=== PATIENT | female | born 1940 | race Caucasian/White ===

== ENCOUNTER 2018-11-13 07:26 | Outpatient (CLI) | payer MEDICARE, OTHER ==
--- NOTE | 2018-11-13 10:53 | MRI ---
MRI LUMBAR SPINE WITHOUT CONTRAST: Date: 11/13/18 COMPARISON: None. CORRELATION: CT lumbar spine dated 11/12/18. HISTORY: T12 compression fracture. Pain. Difficulty walking. Unable to bear weight. Loss of bladder and bowel control. FINDINGS: There is T1 marrow signal hypointensity with associated T2 and STIR hyperintensity involving the T12 vertebral body compatible with a known compression fracture. When comparing the previous CT with this exam, there is continued loss of vertebral body height with evidence of retropulsion. There are bila teral transpedicular screws at L4 and L5, along with a disc prosthesis. There is associated metallic susceptibility artifact. There is anterolisthesis of L4 upon L5 (7 mm). Visualized kidneys demonstrate bilateral cortical and parapelvic cysts. There is atrophy of the right psoas muscle. Conus medullaris terminates at the inferior aspect of L1. T11-T12: No significant central canal stenosis. Moderate right and left foraminal narrowing. There appears to be intrinsic hemangioma at T11. T12 vertebral body: Moderate central canal stenosis secondary to retropulsion. T12-L1: Mild central canal stenosis predominantly due to retropulsion. Moderate bilateral foraminal narrowing. L1-L2: Desiccation with mild loss of disc space height. No high grade central canal stenosis. Mild r ight and moderate left foraminal narrowing. L2-L3: Desiccation with mild loss of disc space height. Broad based disc bulge, ligamentum flavum th ickening, and facet hypertrophy result in mild central canal stenosis. Moderate bilateral foraminal n arrowing. L3-L4: Limited evaluation due to metallic susceptibility artifact. There is at least moderate centra l canal stenosis. Moderate to severe right and severe left foraminal narrowing. L4-L5: Limited evaluation due to metallic susceptibility artifact. Disc prosthesis is noted. There d oes not appear to be high grade central canal stenosis. Moderate bilateral foraminal narrowing. The n erve roots in the thecal sac are peripherally displaced. Correlate for probable arachnoiditis. L5-S1: Desiccation with mild loss of disc space height. There is ligamentum flavum thickening and fa cet hypertrophy. No significant stenosis of the thecal sac. Moderate bilateral foraminal narrowing. T he nerve roots are laterally displaced and there is a partially empty thecal sac. 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 IMPRESSION: 1. Lumbar fusion at L4-L5 as above. Grade I anterolisthesis of L4 upon L5. Multilevel foraminal narr owing as detailed above. 2. Progression of compression fracture and loss of vertebral body height at T12 with associated retr opulsion and moderate central canal stenosis. 3. 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 CODE T. POS: [facility]
== END 2018-11-13 07:27 | disposition home or self-care (01) ==
LOC: BICMRI 07:26
PROVIDERS: ATTEND Neurological Surgery
DX: M84.48XA Pathological fracture, other site, initial encounter for fracture (principal); M43.16 Spondylolisthesis, lumbar region; M48.061 Spinal stenosis, lumbar region without neurogenic claudication; M48.07 Spinal stenosis, lumbosacral region; Z98.1 Arthrodesis status
CPT/HCPCS: 72148

== ENCOUNTER 2018-11-15 07:42 | Inpatient (IN) | payer MEDICARE, OTHER ==
[2018-11-14 14:20] VITALS: BMI 35.4
[2018-11-15 08:35] LABS: #Basophils 0.1 thou/uL (0.0-0.2); #Eosinphils 0.1 thou/uL (0.0-0.7); #Lymphocytes 1.6 thou/uL (1.20-3.40); #Monocytes 1.2 thou/uL (0.11-0.59); #Neutrophils 11.2 thou/uL (1.40-6.50); %Basophils 0.5 % (0.0-1.0); %Eosinophils 0.8 % (0.0-10.0); %Lymphocytes 11.6 % (21.0-51.0); %Monocytes 8.6 % (0.0-10.0); %Neutrophils 78.6 % (42.0-75.0); Hemoglobin 14.3 g/dL (12.0-16.0); Mean Corpuscular HGB CONC 31.4 g/dL (32.0-36.0); Mean Corpuscular Volume 89.1 fL (78.0-98.0); Mean Platelet Volume 7.5 fL (7.4-10.4); Platelet Count 376 thou/uL (130-400); RBC Distribution Width 18.7 % (11.5-14.5); Red Blood Cell (RBC) Count 5.11 mill/uL (4.20-5.40); White Blood Cell (WBC) Count 14.2 thou/uL (4.8-10.8)
[2018-11-15 08:57] LABS: Anion Gap 16 mmol/L (10-20); BUN (Urea Nitrogen) 13 mg/dL (9.8-20.1); Calc. Creatinine Clearance 96 mL/min (70-130); Calcium 9.7 mg/dL (7.8-10.44); Carbon Dioxide 21 mmol/L (23-31); Chloride 102 mmol/L (98-107); Estimated GFR-MDRD 85; Glucose 135 mg/dL (83-110); Potassium 4.3 mmol/L (3.5-5.1); Sodium 135 mmol/L (136-145)
[2018-11-15] MEDS ORDERED: Sodium Chloride 0.9% 10 ML ONE (10:45)
[2018-11-15] MEDS ORDERED: Fentanyl 250 MCG/5 ML VIAL ONE (10:53)
--- NOTE | 2018-11-15 12:50 | OP ---
DATE OF PROCEDURE: 11/15/2018 [employer]ACKER DOUGH MIXER: Chantale Cook PA-C. PROCEDURE PERFORMED: T12 laminectomy, superior L1 laminectomy, posterolateral arthrodesis T10-L1, pedicle screw instrumentation T10-L1, local morselized autograft, BMP. DESCRIPTION OF PROCEDURE: The patient was brought to the operating room and intubated. She was rolled in a prone position on gel-filled chest rolls. An incision was made exposing T10 through L1 and the level was confirmed by x-ray. We performed complete T12 and modest superior L1 laminectomy completely decompressing the spinal canal. We next placed the pedicle screws at T10, T11, and L1 bilaterally. The pedicles and bones were exceptionally soft. The screws were then connected by jese secured by nuts, which were final tightened. The wound was then extensively irrigated with bacitracin irrigation and MAC hemostasis was secured. Combination of local morselized autograft and BMP soaked on the Gelfoam pledget and were laid over the posterolateral surfaces for the purpose of arthrodesis from T10-L1. Vancomycin powder was applied and the wound was closed in anatomic layers over drain. Job ID: [id number]
[2018-11-15] MEDS ORDERED: Promethazine HCl 25 MG/ML VIAL SLOW IVP PRN (13:01)
[2018-11-15] MEDS ORDERED: Promethazine HCl 25 MG/ML VIAL IM PRN ×2 (13:01→13:33)
[2018-11-15] MEDS ORDERED: Ondansetron HCl/PF 4 MG/2 ML Vial IVP PRN (13:01)
[2018-11-15] MEDS ORDERED: Fentanyl 100 MCG/2 ML VIAL ONE ×2 (13:25→13:53)
[2018-11-15] MEDS ORDERED: diphenhydrAMINE 25 MG CAP PO PRN (13:33)
[2018-11-15] MEDS ORDERED: Milk Of Magnesia 30 ML UDCUP PO PRN (13:33)
[2018-11-15] MEDS ORDERED: Promethazine HCl 12.5 MG SUPP PR PRN (13:33)
[2018-11-15] MEDS ORDERED: Promethazine 25 MG TAB PO PRN (13:33)
[2018-11-15] MEDS ORDERED: traMADol HCl 50 MG TAB PO PRN ×2 (13:33)
[2018-11-15] MEDS ORDERED: Mag-Al 1200 mg/1200 mg/30 ML UDCUP PO PRN (13:33)
[2018-11-15] MEDS ORDERED: Morphine 4 MG/ML VIAL SLOW IVP PRN ×2 (13:33→13:34)
[2018-11-15] MEDS ORDERED: diphenhydrAMINE 50 MG/ML VIAL IVP PRN (13:33)
[2018-11-15] MEDS ORDERED: Ondansetron PF 4 MG/2 ML Vial IVP PRN (13:35)
[2018-11-15] MEDS ORDERED: PHENYLEPHRINE-NS 100 MCG/ML 10 ML SYRINGE ONE (14:19)
[2018-11-15] MEDS ORDERED: Ondansetron PF 4 MG/2 ML Vial ONE (14:19)
[2018-11-15] MEDS ORDERED: ePHEDrine 50 MG/ML VIAL ONE (14:19)
[2018-11-15] MEDS ORDERED: Rocuronium Bromide 10 MG/ML (10ML VIAL) ONE (14:19)
[2018-11-15] MEDS ORDERED: PROPOFOL 200 MG/20 ML VIAL ONE (14:19)
[2018-11-15] MEDS ORDERED: Lidocaine 1% PF 5 ML VIAL ONE (14:19)
[2018-11-15] MEDS ORDERED: Glycopyrrolate 0.2 MG/ML 5 ML SYRINGE ONE (14:19)
--- NOTE | 2018-11-15 17:05 | EKG ---
Test Reason : PREOP Blood Pressure : / mmHG Vent. Rate : 102 BPM Atrial Rate : 102 BPM P-R Int : 184 ms QRS Dur : 096 ms QT Int : 344 ms P-R-T Axes : 057 -41 053 degrees QTc Int : 448 ms Sinus tachycardia Left axis deviation Minimal voltage criteria for LVH, may be normal variant Anterior infarct , age undetermined /Poor R wave progression. Abnormal ECG No previous ECGs available Confirmed by CARLOS LEHMAN ([id number]) on 11/15/2018 5:04:35 PM Referred By: MALINI Confirmed By:CARLOS LEHMAN
[2018-11-15] MEDS: HYDROcodone/Acetaminophen 10/325 mg Tablet PO PRN ×2 (18:13→22:31)
[2018-11-15] MEDS: CEFAZOLIN 2 GM in Premix Bag 1 BAG IVPB SCH (18:13)
[2018-11-15] MEDS: Atorvastatin Calcium 20 MG TAB PO SCH (21:30)
[2018-11-15] MEDS: Sodium Chloride 0.9% 1,000 ML IV SCH (21:30)
--- NOTE | 2018-11-16 01:09 | CON ---
DATE OF CONSULTATION: PRIMARY CARE PHYSICIAN: Dr. Adriel Lenz. CHIEF COMPLAINT: The patient admitted for lumbar fusion. Consulted for medical management HISTORY OF PRESENT ILLNESS: Ms. Ann is an 78-year-old female with past medical history of hypothyroidism, DVTs, hyperlipidemia, and acid reflux, who presents as an elective surgery for her lumbar fusion. The patient was having falls. The patient was seen by neurosurgeon who performed the laminectomy at T12 and L1. The patient reports that her pain is well controlled. The patient reports she is compliant with her medication at this point. She denies any other issues. PAST SURGERY HISTORY: As mentioned in the HPI. PAST SURGICAL HISTORY: 1. Bilateral knee replacement. 2. Laminectomy. 3. Foot hardware placement. FAMILY HISTORY: Mother cancer. Father heart failure. ALLERGIES: THE PATIENT IS ALLERGIC TO CELECOXIB, NITROFURANTOIN, RISEDRONATE AND SULFA DRUGS. SOCIAL HISTORY: The patient denies smoking, illicit drugs, or any alcohol use. MEDICATIONS: Home medications include: 1. Levothyroxine. 2. Aspirin. 3. Atorvastatin. 4. Calcium. 5. Levothyroxine. 6. Omeprazole. PHYSICAL EXAMINATION: VITAL SIGNS: Blood pressure 117/70, pulse 101, temp 97.7, respiration rate 18, O2 saturation 95% on 2 L nasal cannula. HEENT: Head, atraumatic. NECK: No lymphadenopathy noted. EYES: Extraocular movement intact. Mouth, no exudate. Nose and ears no drainage noted. CARDIOVASCULAR: Regular rate and rhythm. The patient noted to have systolic murmur. RESPIRATORY: Clear bilaterally. GI: Soft. Bowel sounds positive. Nontender. EXTREMITIES: No edema noted. The patient noted to have a drain from a surgical site. SKIN: no rashes noted LABORATORY DATA: Sodium 135, potassium 4.3, chloride 102, bicarb 21, BUN 13, creatinine 0.67, glucose 137, white blood cell count 14.2, hemoglobin 14.5, hematocrit 45.3, platelets 376. The patient EKG reviewed and negative for ST-segment elevation per the report. ASSESSMENT: 1. Lumbar fusion and fall, status post laminectomy. 2. Leukocytosis. 3. Hypothyroidism. 4. Osteoporosis. 5. Gastroesophageal reflux disease. PLAN: 1. The patient is status post laminectomy, pain well controlled. 2. Continue pain management per Neurosurgery. 3. Leukocytosis, likely due to surgery. 4. The patient does not seem to be infectious at this point. 5. Continue to monitor clinically at this point. 6. Hypothyroidism. Continue home levothyroxine. 7. GERD, continue PPI. 8. History of DVT. Patient only on aspirin. Restart aspirin per Neurosurgery. 9. DVT prophylaxis, SCDs. 10. The patient's medical power of civil attorney would be son. Job ID: [id number] MTDD
[2018-11-16] MEDS: CEFAZOLIN 2 GM in Premix Bag 1 BAG IVPB SCH ×3 (01:36→16:59)
[2018-11-16] MEDS: HYDROcodone/Acetaminophen 10/325 mg Tablet PO PRN ×3 (06:58→21:22)
[2018-11-16] MEDS: Levothyroxine Sodium 75 MCG TAB PO SCH (06:58)
[2018-11-16] MEDS: Stress 600 With Zinc 1 TAB PO SCH (08:09)
[2018-11-16] MEDS: Calcium Carbonate + Vit D 1 TAB PO SCH (08:09)
[2018-11-16] MEDS: Cyanocobalamin (Vitamin B-12) 1,000 MCG TAB PO SCH (08:09)
[2018-11-16] MEDS: Lactinex Tablet PO SCH (08:09)
[2018-11-16] MEDS ORDERED: BIOTIN 5000 MCG PO SCH (09:00)
[2018-11-16] MEDS: Sodium Chloride 0.9% 1,000 ML IV SCH ×2 (09:30→22:18)
--- NOTE | 2018-11-16 12:55 | PRG ---
DATE OF SERVICE: 11/16/2018 SUBJECTIVE: Ms. Ann is doing quite well, considering the extent of her surgery. She has yet to get up with physical therapy, but will be doing so shortly. Her pain control is quite adequate. We will continue gradual mobilization and pain control through the weekend, and hopefully, by early next week, we can make a plan for rehab versus snf. Job ID: [id number]
[2018-11-16] MEDS ORDERED: Milk Of Magnesia 30 ML UDCUP PO PRN (15:09)
[2018-11-16] MEDS ORDERED: Eucerin (Mineral Oil/Petrolatum,White) 30 gm Jar TOP PRN (15:09)
--- NOTE | 2018-11-16 15:36 | PRG ---
DATE OF SERVICE: 11/16/2018 SUBJECTIVE: The patient denies any new complaints at this time. No fevers, chills, shortness of breath, or chest pain reported. OBJECTIVE: VITAL SIGNS: Temperature 97.7, pulse of 93, respirations of 18, blood pressure 111/58, O2 saturation 94% on room air. GENERAL: An 78-year-old female, in no apparent distress. LUNGS: Clear to auscultation bilaterally. HEART: S1, S2 present. Regular rate and rhythm. ABDOMEN: Soft, nontender. Bowel sounds present. EXTREMITIES: No edema or calf tenderness. LABORATORY FINDINGS: Sodium 135, potassium 4.3, chloride 102, bicarb 21, BUN 13, and creatinine 0.67. CURRENT MEDICATIONS: Reviewed. IMPRESSION: 1. Status post lumbar laminectomy. Management per primary service. 2. Leukocytosis, unlikely to be infectious. 3. Hypothyroidism. 4. Gastroesophageal reflux disease. 5. Osteoporosis. 6. Obesity with a BMI of 35.4. 7. Chronic kidney disease stage 2. 8. Hyperlipidemia. PLAN: We will change timing of Protonix to 06:00 a.m. daily per the patient's request. We will continue levothyroxine and statins. Continue physical therapy, occupational therapy. Pain control. We will discontinue IV fluids when tolerating p.o. Plan was discussed with the patient. She stated understanding. Job ID: [id number]
[2018-11-16] MEDS: Atorvastatin Calcium 20 MG TAB PO SCH (21:21)
[2018-11-16] MEDS: Senokot S 8.6-50 MG TAB PO SCH (21:21)
[2018-11-16] MEDS: Nystatin Powder 15 GM BOT TOP SCH (21:22)
[2018-11-17] MEDS: CEFAZOLIN 2 GM in Premix Bag 1 BAG IVPB SCH ×2 (01:55→08:40)
[2018-11-17] MEDS: HYDROcodone/Acetaminophen 10/325 mg Tablet PO PRN ×2 (06:41→10:26)
[2018-11-17] MEDS: Levothyroxine Sodium 75 MCG TAB PO SCH (06:42)
[2018-11-17] MEDS: Polyethylene Glycol 3350 17 GM Packet PO SCH (08:41)
[2018-11-17] MEDS: Stress 600 With Zinc 1 TAB PO SCH (08:41)
[2018-11-17] MEDS: Lactinex Tablet PO SCH (08:41)
[2018-11-17] MEDS: Cyanocobalamin (Vitamin B-12) 1,000 MCG TAB PO SCH (08:41)
[2018-11-17] MEDS: Nystatin Powder 15 GM BOT TOP SCH ×2 (08:41→21:59)
[2018-11-17] MEDS: Calcium Carbonate + Vit D 1 TAB PO SCH (08:42)
[2018-11-17] MEDS: Senokot S 8.6-50 MG TAB PO SCH ×2 (08:42→21:59)
[2018-11-17] MEDS: Cephalexin 250 MG CAP PO SCH ×3 (13:21→21:59)
[2018-11-17] MEDS: Sodium Chloride 0.9% 1,000 ML IV SCH (13:21)
[2018-11-17] MEDS: Atorvastatin Calcium 20 MG TAB PO SCH (21:59)
[2018-11-17] MEDS: tiZANidine HCl 4 MG TAB PO PRN (22:05)
[2018-11-18] MEDS: Sodium Chloride 0.9% 1,000 ML IV SCH ×2 (02:03→14:43)
[2018-11-18] MEDS: HYDROcodone/Acetaminophen 10/325 mg Tablet PO PRN (06:41)
[2018-11-18] MEDS: Levothyroxine Sodium 75 MCG TAB PO SCH (06:41)
[2018-11-18] MEDS: Stress 600 With Zinc 1 TAB PO SCH (08:45)
[2018-11-18] MEDS: Polyethylene Glycol 3350 17 GM Packet PO SCH (08:46)
[2018-11-18] MEDS: Calcium Carbonate + Vit D 1 TAB PO SCH ×2 (08:46→17:24)
[2018-11-18] MEDS: Cephalexin 250 MG CAP PO SCH ×4 (08:46→21:11)
[2018-11-18] MEDS: Nystatin Powder 15 GM BOT TOP SCH ×2 (08:47→21:11)
[2018-11-18] MEDS: Cyanocobalamin (Vitamin B-12) 1,000 MCG TAB PO SCH (08:47)
[2018-11-18] MEDS: Lactinex Tablet PO SCH (08:47)
[2018-11-18] MEDS: Senokot S 8.6-50 MG TAB PO SCH ×2 (08:47→21:10)
[2018-11-18] MEDS: tiZANidine HCl 4 MG TAB PO PRN (18:12)
[2018-11-18] MEDS: Atorvastatin Calcium 20 MG TAB PO SCH (21:10)
[2018-11-18] MEDS: Acetaminophen 500 MG TAB PO PRN (21:10)
--- NOTE | 2018-11-18 21:48 | PDOC.PN ---
- Subjective Encounter Start Date: 11/18/18 Encounter Start Time: 16:30 Patient seen and examined for med mngt. No new complaints. No overnight events - Objective MAR Reviewed: Yes Vital Signs & Weight: Vital Signs (12 hours) Temp Pulse Resp BP Pulse Ox 11/18/18 20:29 98.6 F 58 L 12 93/58 L 94 L 11/18/18 15:35 98.5 F 90 18 124/72 96 11/18/18 12:20 97.7 F 89 16 105/69 99 Weight Weight 200 lb I&O: 11/17/18 11/18/18 11/19/18 06:59 06:59 06:59 Intake Total 700 1000 900 Output Total 220 Balance 480 1000 900 Result Diagrams: 11/15/18 08:27 11/15/18 08:27 Phys Exam - Physical Examination Constitutional: NAD Respiratory: no wheezing, no rhonchi Cardiovascular: RRR, no rub Gastrointestinal: soft, positive bowel sounds Musculoskeletal: no edema Dx/Plan - Plan DVT proph w/SCDs IMPRESSION: 1. Status post lumbar laminectomy - Management per primary service. 2. Leukocytosis - unlikely to be infectious. 3. Hypothyroidism. 4. Gastroesophageal reflux disease. 5. Osteoporosis. 6. Obesity with a BMI of 35.4. 7. Chronic kidney disease stage 2. 8. Hyperlipidemia. 9. Constipation. PLAN: Cont Levothyroxine Change Calcium to BID per patient's request Cont PPI Increase Sen-S dose Will follow PRN Review of Systems - Review of Systems Respiratory: negative: Cough, Dry, Shortness of Breath, Hemoptysis, SOB with Excertion, Pleuritic Pain, Sputum, Wheezing Cardiovascular: negative: chest pain, palpitations, orthopnea, paroxysmal nocturnal dyspnea, edema, light headedness, other Gastrointestinal: Constipation. negative: Nausea, Vomiting, Abdominal Pain, Diarrhea, Melena, Hematochezia, Other - Medications/Allergies Allergies/Adverse Reactions: Allergies Allergy/AdvReac Type Severity Reaction Status Date / Time celecoxib [From Celebrex] Allergy flushing Verified 11/14/18 14:21 all over nitrofurantoin Allergy Rash Verified 11/14/18 14:21 [From Macrodantin] risedronate sodium Allergy weakness Verified 11/14/18 14:21 [From Actonel] Sulfa (Sulfonamide Allergy red rash Verified 11/14/18 14:21 Antibiotics) Medications: Current Medications Acetaminophen (Tylenol) 1,000 mg PO Q6H PRN PRN Reason: Headache/Fever or Pain Last Admin: 11/18/18 21:10 Dose: 1,000 mg Hydrocodone Bitart/Acetaminophen ([place] 10/325) 1 tab PO Q4H PRN PRN Reason: PAIN (1-3) Last Admin: 11/17/18 10:26 Dose: 1 tab Hydrocodone Bitart/Acetaminophen ([place] 10/325) 2 tab PO Q4H PRN PRN Reason: PAIN (4-6) Last Admin: 11/18/18 06:41 Dose: 2 tab Acidophilus (Floranex) 1 tab PO QAM [facility] Last Admin: 11/18/18 08:47 Dose: 1 tab Al Hydroxide/Mg Hydroxide (Maalox) 30 ml PO Q4H PRN PRN Reason: Heartburn or Indigestion Atorvastatin Calcium (Lipitor) 20 mg PO HS [facility] Last Admin: 11/18/18 21:10 Dose: 20 mg Calcium/Vitamin D (Caltrate 600 + Vit D) 1 tab PO BID-[facility] Last Admin: 11/18/18 17:24 Dose: 1 tab Cephalexin (Keflex) 500 mg PO QID [facility] Last Admin: 11/18/18 21:11 Dose: 500 mg Cyanocobalamin (Vitamin B-12) 1,000 mcg PO QAM [facility] Last Admin: 11/18/18 08:47 Dose: 1,000 mcg Diphenhydramine HCl (Benadryl) 25 mg PO Q6H PRN PRN Reason: Itching Diphenhydramine HCl (Benadryl) 25 mg IVP Q6H PRN PRN Reason: Itching Levothyroxine Sodium (Synthroid) 75 mcg PO 0600 [facility] Last Admin: 11/18/18 06:41 Dose: 75 mcg Magnesium Hydroxide (Milk Of Magnesium) 30 ml PO Q12H PRN PRN Reason: Constipation Magnesium Hydroxide (Milk Of Magnesium) 30 ml PO DAILYPRN PRN PRN Reason: Constipation Mineral Oil/White Petrolatum (Eucerin Cream) 0 gm TOP BIDPRN PRN PRN Reason: Dry Skin Morphine Sulfate (Morphine) 2 mg SLOW IVP Q1H PRN PRN Reason: MOD. BREAKTHROUGH PAIN Morphine Sulfate (Morphine) 4 mg SLOW IVP Q1H PRN PRN Reason: SEVERE BREAKTHROUGH PAIN Multivitamins/Zinc (Stress 600 With Zinc) 1 tab PO QAM [facility] Last Admin: 11/18/18 08:45 Dose: 1 tab Nystatin (Mycostatin Powder) 0 gm TOP BID [facility] Last Admin: 11/18/18 21:11 Dose: 1 applic Ondansetron HCl (Zofran) 4 mg IVP Q8H PRN PRN Reason: Nausea/Vomiting Pantoprazole Sodium (Protonix) 40 mg PO 0600 [facility] Last Admin: 11/18/18 06:41 Dose: 40 mg Polyethylene Glycol (Miralax) 17 gm PO DAILY [facility] Last Admin: 11/18/18 08:46 Dose: 17 gm Promethazine HCl (Phenergan) 12.5 mg IM Q4H PRN PRN Reason: Nausea/Vomiting Promethazine HCl (Phenergan) 12.5 mg PO Q4H PRN PRN Reason: Nausea/Vomiting Promethazine HCl (Phenergan Suppository) 12.5 mg AK Q4H PRN PRN Reason: Nausea/Vomiting Senna/Docusate Sodium (Senokot S) 2 tab PO BID [facility] Last Admin: 11/18/18 21:10 Dose: 2 tab Sodium Chloride (Flush - Normal Saline) 10 ml IVF Q12HR [facility] Last Admin: 11/18/18 21:12 Dose: 10 ml Sodium Chloride (Flush - Normal Saline) 10 ml IVF PRN PRN PRN Reason: Saline Flush Tizanidine HCl (Zanaflex) 4 mg PO Q6H PRN PRN Reason: MUSCLE SPASM Last Admin: 11/18/18 18:12 Dose: 4 mg Tramadol HCl (Ultram) 50 mg PO Q6H PRN PRN Reason: PAIN (1-3) Tramadol HCl (Ultram) 100 mg PO Q6H PRN PRN Reason: PAIN (4-6)
[2018-11-19] MEDS: Levothyroxine Sodium 75 MCG TAB PO SCH (05:18)
[2018-11-19] MEDS: Calcium Carbonate + Vit D 1 TAB PO SCH (08:42)
[2018-11-19] MEDS: Cephalexin 250 MG CAP PO SCH ×2 (08:42→13:09)
[2018-11-19] MEDS: Lactinex Tablet PO SCH (08:43)
[2018-11-19] MEDS: Senokot S 8.6-50 MG TAB PO SCH (08:43)
[2018-11-19] MEDS: Cyanocobalamin (Vitamin B-12) 1,000 MCG TAB PO SCH (08:43)
[2018-11-19] MEDS: Polyethylene Glycol 3350 17 GM Packet PO SCH (08:44)
[2018-11-19] MEDS: Stress 600 With Zinc 1 TAB PO SCH (09:57)
[2018-11-19] MEDS: Nystatin Powder 15 GM BOT TOP SCH (10:33)
[2018-11-19] MEDS: Acetaminophen 500 MG TAB PO PRN (10:34)
[2018-11-19] MEDS: HYDROcodone/Acetaminophen 10/325 mg Tablet PO PRN (13:11)
[2018-11-19 14:14] VITALS: BP 115/63; TEMP 98.6
--- NOTE | 2018-11-20 13:35 | DIS ---
DATE OF ADMISSION: 11/15/2018 DATE OF DISCHARGE: 11/19/2018 The patient is an 78-year-old female, seen recently in our office for T12 compression fracture with posterior migration and evidence of stenosis. She was evaluated with MRI and recommended for T12 laminectomy and T10 to L1 fusion. She underwent this surgery on 11/15/2018. Following the surgery, she was transitioned to the Med/Surg floor, where her pain was well controlled with p.o. medications. She was tolerating a regular diet, and voiding appropriately. She had ROSA drain placed intraoperatively and this output trended down during her admission and was removed on postoperative day #2. She had some improvement in her lower extremity strength and began mobilizing with PT. She was able to stand for short periods at the side of the bed. We discussed inpatient rehabilitation versus home with home health. Secondary to poor experience with rehab in the past, she elected for home to [facility]. The patient was awake, comfortable, in no acute distress. Free active range of motion of the upper extremities with 5/5 strength throughout. She remained weak in the lower extremities at 3+/5, but this improved during her admission course. No changes in her bowel or bladder function. Her incision remained dry and intact. The patient was dismissed from the hospital to [facility]. We will follow up with the patient in 2 weeks in the office after discussed home care and precautions. The patient provided with scripts for Stout, Zanaflex, and antibiotic. Job ID: [id number]
== END 2018-11-19 14:44 | disposition home health service (06) | DRG 460 ==
LOC: SURG A 07:42
PROVIDERS: ADMIT Neurological Surgery; ATTEND Neurological Surgery
PROC: 0RG6071 Fusion of Thoracic Vertebral Joint with Autologous Tissue Substitute, Posterior Approach, Posterior Column, Open Approach (ICD-10-PCS; principal; 2018-11-15)
PROC: 0RGA071 Fusion of Thoracolumbar Vertebral Joint with Autologous Tissue Substitute, Posterior Approach, Posterior Column, Open Approach (ICD-10-PCS; 2018-11-15)
PROC: 00NX0ZZ Release Thoracic Spinal Cord, Open Approach (ICD-10-PCS; 2018-11-15)
PROC: 00NY0ZZ Release Lumbar Spinal Cord, Open Approach (ICD-10-PCS; 2018-11-15)
DX: S22.089A Unspecified fracture of T11-T12 vertebra, initial encounter for closed fracture (principal); M84.48XA Pathological fracture, other site, initial encounter for fracture; M54.16 Radiculopathy, lumbar region; M19.90 Unspecified osteoarthritis, unspecified site; M81.0 Age-related osteoporosis without current pathological fracture; E03.9 Hypothyroidism, unspecified; K21.9 Gastro-esophageal reflux disease without esophagitis; N18.2 Chronic kidney disease, stage 2 (mild); E78.5 Hyperlipidemia, unspecified; E66.9 Obesity, unspecified; Z68.35 Body mass index [BMI] 35.0-35.9, adult; D72.829 Elevated white blood cell count, unspecified; K59.00 Constipation, unspecified; Z86.718 Personal history of other venous thrombosis and embolism; Z88.1 Allergy status to other antibiotic agents; Z88.2 Allergy status to sulfonamides; Z88.8 Allergy status to other drugs, medicaments and biological substances; Z79.82 Long term (current) use of aspirin; Z79.899 Other long term (current) drug therapy; Z96.653 Presence of artificial knee joint, bilateral; Z96.641 Presence of right artificial hip joint; W19.XXXA Unspecified fall, initial encounter; M43.16 Spondylolisthesis, lumbar region; M48.07 Spinal stenosis, lumbosacral region; Z98.1 Arthrodesis status
CPT/HCPCS: 36415; 72148; 76000; 80048; 85025; 93005; 93010; C1713; J2001; J2405; J2704; J3010; J3370; J3490

== ENCOUNTER 2018-11-27 15:31 | Outpatient (CLI) | payer MEDICARE, OTHER ==
--- NOTE | 2018-11-27 16:54 | RAD ---
THORACIC SPINE THREE VIEW 11/27/18 HISTORY: S41.101A - spinal cord injury at T1-T6. COMPARISON: None. FINDINGS: Patient was unable to stand up for evaluation of the thoracic spine. It is severely limited. No defin ite thoracic spine fracture of the upper thoracic spine is appreciated. The lower thoracic spine from T9 down is not interrogated on this examination. There is new skin cathie over the anterior abdomen. Thoracolumbar fusion hardware is present. IMPRESSION: No acute fracture of the upper thoracic spine. POS: [facility]
--- NOTE | 2018-11-27 17:07 | RAD ---
LUMBAR SPINE THREE VIEWS: 11/27/2018 HISTORY: Follow up surgery. Patient unable to stand. COMPARISON: CT lumbar spine from 10/22/2018. FINDINGS: Again noted are bipedicular screws and posterior rods, as well as transverse bar, transfixing the L4- L5 level, with evidence of intradiskal prosthesis. Grade I anterolisthesis of L4 on L5 is again pres ent. There have been interval post surgical changes related to fixation of the thoracolumbar spine and the burst fracture involving the T12 vertebral body, with vertebral plana type deformity present on this exam. The degree of height loss anteriorly has increased from the CT exam on 10/22/2018. There are bipedicular screws within the T10, T11, and L1 vertebral bodies, transfixed by posterior rods. Overlying skin clips are present. There is exaggerated lordosis of the lumbar spine, centered at the L3-L4 level. No hardware complication is seen on provided images. A vascular stent is seen overlyi ng the expected location of the left iliac arteries. IMPRESSION: 1. Interval post surgical changes, related to posterior hardware fixation of the burst fracture of t he T12 vertebral body, which demonstrates vertebra plana type deformity and just greater than 75% los s of height anteriorly. The degree of height loss has increased from the prior CT exam. No hardware complication is appreciated. Laminectomy defects are seen. 2. Stable post surgical changes related to posterior fusion at the L4-L5 level. POS: [facility]
== END 2018-11-27 15:32 | disposition home or self-care (01) ==
LOC: TBSIIMAG 15:31
PROVIDERS: ATTEND Neurological Surgery
DX: S24.101A Unspecified injury at T1 level of thoracic spinal cord, initial encounter (principal); S24.102A Unspecified injury at T2-T6 level of thoracic spinal cord, initial encounter; S22.081D Stable burst fracture of T11-T12 vertebra, subsequent encounter for fracture with routine healing; M43.8X4 Other specified deforming dorsopathies, thoracic region; Z98.1 Arthrodesis status
CPT/HCPCS: 72072; 72100

== ENCOUNTER 2018-12-26 14:18 | Outpatient (CLI) | payer MEDICARE, OTHER ==
--- NOTE | 2018-12-26 14:48 | RAD ---
FEXAM:Lumbar spine 2 views HISTORY: Follow-up T12 fracture COMPARISON: 11/27/2018 study FINDINGS:Postoperative changes of the spine are present. Bilateral pedicle screws and disc implant ar e again noted at the L5-S1 level. Compression changes at T12 are stable. These are stabilized with bi lateral pedicle screws at T10, T11 and L1. IMPRESSION:Stable exam.
== END 2018-12-26 14:19 | disposition home or self-care (01) ==
LOC: TBSIIMAG 14:18
PROVIDERS: ATTEND Neurological Surgery
DX: M48.56XD Collapsed vertebra, not elsewhere classified, lumbar region, subsequent encounter for fracture with routine healing (principal); Z98.890 Other specified postprocedural states
CPT/HCPCS: 72100

== ENCOUNTER 2019-02-25 12:38 | Outpatient (CLI) | payer MEDICARE, OTHER ==
--- NOTE | 2019-02-25 13:26 | RAD ---
LUMBAR SPINE 2 VIEWS: Date: 02/25/19 HISTORY: Thoracolumbar fracture. COMPARISON: 12/26/18. FINDINGS: Postoperative pedicle screw placement changes and intradiscal prosthesis at L4-L5. Marked burst-type fracture of T12 with pedicle screw stabilizing T10, T11, and L1 region. Stable appearance from . IMPRESSION: Stable postoperative changes and vertical height loss of T12. POS: [facility]
--- NOTE | 2019-02-25 13:27 | RAD ---
THORACIC SPINE THREE VIEWS: 02/25/19 HISTORY: Thoracolumbar fracture follow-up. COMPARISON: 11/27/18. Generalized disc osteophytosis. Pedicle screw stabilization of T10, T11, and L1. Markedly compressed burst fracture of T12 with considerable vertical height loss, stable. IMPRESSION: Stable exam. POS: [facility]
== END 2019-02-25 12:39 | disposition home or self-care (01) ==
LOC: TBSIIMAG 12:38
PROVIDERS: ATTEND Neurological Surgery
DX: S24.101A Unspecified injury at T1 level of thoracic spinal cord, initial encounter (principal); Z98.890 Other specified postprocedural states
CPT/HCPCS: 72072; 72100